=== PATIENT | male | born 1945 | race Caucasian/White ===

== ENCOUNTER 2017-04-05 17:17 | Emergency (ER) | payer MEDICARE, OTHER ==
[~2017-04-05] VITALS: Ht 182.9 cm; Wt 101.8 kg
[2017-04-05 17:20] VITALS: BP 157/75; PULSE 86; RESP 18; O2SAT 98
--- NOTE | 2017-04-05 17:44 | ED.REPORT ---
HPI-Extremity Problem Lower Date of Service Apr 05, 2017 ED Provider: Carlos Samuels MD A 71 year old male with a history of hypothyroidism, hypertension, sciatica, hepatitis C, hyperlipidemia and GERD presents to the ED complaining of right hip pain. The pain radiates down his right leg and has worsened to the point that he is no longer able to stand or walk normally. The pt has been experiencing this pain since 16:00 yesterday afternoon while the pt was working in the yard. He denies trauma. He also denies incontinence or urinary retention. The pt was seen in Urgent Care yesterday and diagnosed with sciatica , but suspects that he may have a hairline fracture or other concern. The pt took tramadol this morning and two muscle relaxers at approximately 13:00. He has previously had injections for his sciatica, which relieved his prior sciatica pain. This is worse than any of his previous sciatica pain. Nursing Notes Stated Complaint: RIGHT HIP & LEG PAIN Chief Complaint: Extremity Trauma Nursing Notes Reviewed: Yes Allergies: Coded Allergies: Penicillins (Verified Allergy, Unknown, 04/05/17) Uncoded Allergies: SULFA (Allergy, Unknown, 04/05/17) Scheduled Ascorbate Calcium (Vitamin C) 500 Mg Tablet 500 MG PO DAILY Aspirin (Aspirin) 325 Mg Tablet 325 MG PO DAILY Fluticasone Propionate (Flonase Allergy Relief) 50 Mcg/Actuation Taylor.susp 9.9 ML NS DAILY Levothyroxine (Levothyroxine) 150 Mcg Tablet 150 MCG PO DAILY Multivitamin (Once Daily) 1 Each Tablet 1 EACH PO DAILY Omeprazole (Omeprazole) 20 Mg Capsule.dr 20 MG PO DAILY Pravastatin (Pravastatin) 80 Mg Tablet 80 MG PO HS Prednisone (PredniSONE) 20 Mg Tablet 40 MG PO DAILY Scheduled PRN Sildenafil Citrate (Viagra) 100 Mg Tablet 100 MG PO UD PRN PRN AD Tramadol (Ultram) 50 Mg Tablet 50 MG PO BID PRN PRN Pain General Time Seen by MD: 17:42 Chief Complaint Other (Right hip pain) Hx Obtained From: Patient Arrived By: Walk-in Onset Occurred: 1 day ago Symptom Duration: Since onset Recent Healthcare: No recent hospitalization, Recent doctor visit Similar Sx Previous: No Past Medical History Past Medical History hypothyroidism hepatitis C hyperlipidemia sciatica Reports: GERD, Hypertension Past Surgical History spinal surgery shoulder surgery Smoking History Unknown if Ever Smoker Social History Other Social History: Good social support Ambulatory Status Independent Review of Systems Musculoskeletal: Reports: Extremity pain, Denies: Back pain, Joint pain (right hip), Neck pain Skin: Denies Rash Complete sys rev & neg: except as marked. Respiratory: Denies: Non-productive cough, Shortness of breath Cardiovascular: Denies: Chest pain GI: Denies: Abdominal pain, Nausea, Vomiting Physical Exam Initial Vital Signs Vital Signs (First) Date Time Temp Pulse Resp B/P Pulse Ox O2 Delivery O2 Flow Rate FiO2 04/05/17 17:20 36.6 86 18 157/75 98 Room Air Initial VS: Reviewed Lower Extremity / Pelvis / MS: Neurologic intact, Vascular intact strength 5/5 in lower extremities sensation intact in lower extremities Ankle / Foot: Atraumatic, Full range of motion General/Constitutional: Awake, Alert Respiratory / Chest: Atraumatic, Breath sounds NL, Breath sounds = bilat, No respiratory distress Cardiovascular: Heart rate NL, Regular rhythm, Heart sounds NL, No gallop, No murmurs, No rubs Skin: Atraumatic, Color NL, No rash, Warm, Dry Neurologic: Oriented X3, Speech NL, No motor deficits, No sensory deficits Head / Eyes: Atraumatic, Normocephalic, PERRL, EOMI ENT: Atraumatic, Airway patent, Mucous membranes moist Neck: Atraumatic, Supple, Full range of motion Abdomen: Atraumatic, Soft, Non-tender, No distention Back: Atraumatic, Full range of motion Additional Notes: no cervical, thoracic or lumbar tenderness no step-offs Upper Extremity / MS: Atraumatic, Full range of motion Psychiatric: Affect NL, Mood NL Interpretation & Diagnostics Interpretation & Diagnostics: Right Hip X-Ray: IMPRESSION: Mild osteoarthritic change in the hip joint. Dictated by: Dwight Chamberlain M.D. on 04/05/2017 at 18:52 Approved by: Dwight Chamberlain M.D. on 04/05/2017 at 18:53 Re-Eval/Medical Decision Med Decision/Clinical Course In summary, the patient is a 71-year-old male with past medical history significant for sciatica, who presents with back pain radiating down to his right leg and hip. Our primary and secondary assessment reveals an awake, alert patient in no acute distress. Hemodynamically stable and afebrile. Exam reveals normal neurologic exam of the lower extremities. Given this immunocompetent, afebrile, patient's history and exam, suspect sciatica exacerbation. No concerning signs or symptoms suggestive of cauda equina, cord compression, epidural abscess or other neurologic emergency. History not suggestive of referred intraabdominal pathology or vascular emergency. There is no history of significant trauma, fever, incontinence, unexplained weight loss, cancer history, long-term steroid use or IV drug use. Plain films of the right hip demonstrate osteoarthritic change without any acute fractures and given the patient's young age, I do not feel imaging is warranted at this time. Given the patient's workup, feel they are safe for discharge with conservative management. The patient was given oral oxycodone for symptom control while here in the ER. He has been referred to a specialist by his primary care physician as he has responded well to injections for his sciatica in the past. Have discussed with the patient results of workup, indications for return including: motor weakness in the lower extremities and/or bowel or bladder incontinence. Also emphasized the need for PCP follow up. They understand and agree with the plan. Source of Hx: Old records Re-Evaluation/Progress #1: Time of Eval: 18:23 Patient Status: Condition improved Re-Evaluation/Progress Note: Pt rechecked, who is resting. Further history and physical exam are obtained. Re-Evaluation/Progress #2: Time of Eval: 19:14 Patient Status: Condition improved Re-Evaluation/Progress Note: Pt rechecked, who is comfortable. The diagnosis and plan for discharge are discussed. The pt understands and agrees with the plan. All questions are addressed at this time. Counseled Regarding: Diagnosis, Lab results, Need for follow-up, When/why to return to ED Discharge & Departure Impression: Primary Impression: Sciatica Laterality: right Qualified Code: M54.31 - Sciatica, right side Additional Impression: Right hip pain Disposition: Home Discharge Condition All VS Reviewed: Yes Condition: Stable Patient Instructions: Hip Pain (ED), Sciatica (ED) Additional Instructions: Thank you for seeking care at the emergency room. It is difficult for us to make definitive diagnoses in the ED but we believe that you are experiencing pain related to your sciatica. Our primary goal today in the Emergency Department was to evaluate you for any life-threatening conditions. Your evaluation was reassuring. You will be discharged with a prescription for steroids, please take as directed. You may continue to take the tramadol that was previously prescribed. You should follow-up with your primary doctor in the next week. Please continue to follow up about getting injections in your hip since this has helped in the past. You should return to the Emergency Department immediately if you develop continence, weakness, sensation, fevers, vomiting, cough, shortness of breath, chest pain, lightheadedness or any other concerning signs or symptoms. Thank you for letting us partake in your care today. You have been prescribed a narcotic for pain relief. These drugs are usually combined with acetaminophen (Tylenol#3, Percocet, Darvocet, Anexsia, Vicodin) or aspirin (Empirin#3, Percodan, Synalogs-DC) for increased effect. Narcotics act on the central nervous system to reduce pain; they also impair mental alertness and physical abilities. We advise you not to drink alcohol, drive a car, or operate dangerous equipment when you are taking these drugs. You can lessen stomach irritation from your medicine by taking it with meals or a full glass of water. Common side effects of narcotics are: Nausea and vomiting , heartburn, constipation, dizziness, sleepiness, and mood changes. If you have bothersome side effects or symptoms of an allergic reaction (itching, hives, rash), stop taking your medicine and call your doctor or the emergency room right away. Please keep your narcotic medicine well out of the reach of children. Referrals: Serafin Velez MD (PCP) Scribe Attestation Portions of this note were transcribed by Angela Berg. I, Dr. Samuels personally performed the history, physical exam and medical decision-making; I reviewed and confirmed the accuracy of the information in the transcribed note. copies to: Serafin Velez MD, Beck O MD Apr 05, 2017 17:44 ANGELA BERG Apr 05, 2017 17:50
[2017-04-05] MEDS ORDERED: ASCO-294 PO (17:59)
[2017-04-05] MEDS ORDERED: PRAV80TA2 PO (17:59)
[2017-04-05] MEDS ORDERED: SILD100T PO (17:59)
[2017-04-05] MEDS ORDERED: LEVO150T5 PO (17:59)
[2017-04-05] MEDS ORDERED: OMEP20CA11 PO (17:59)
[2017-04-05] MEDS ORDERED: FLUT9.9S NS (17:59)
[2017-04-05] MEDS ORDERED: MULT-666 PO (17:59)
[2017-04-05] MEDS ORDERED: TRAM-14 PO (17:59)
[2017-04-05] MEDS ORDERED: ASPI325T32 PO (17:59)
[2017-04-05] MEDS ORDERED: PRE20 PO (18:39)
--- NOTE | 2017-04-05 18:54 | DRSVH ---
PROCEDURE: X-RAY RIGHT HIP COMPLETE, MINIMUM TWO VIEWS ([id number]) INDICATIONS: pain TECHNIQUE: 2 views of the hip were acquired. COMPARISON: None. FINDINGS: Bones: No fractures or dislocations. Small osteophytes are seen around the margin of the femoral hea d neck junction.. The visualized pelvic ring appears intact. Soft tissues: Dystrophic calcifications are seen around the greater trochanter. IMPRESSION: Mild osteoarthritic change in the hip joint. Dictated by: Dwight Chamberlain M.D. on 04/05/2017 at 18:52 Approved by: Dwight Chamberlain M.D. on 04/05/2017 at 18:53
[2017-04-05 19:23] VITALS: BP 134/71; PULSE 79; RESP 18; O2SAT 99
== END 2017-04-05 19:24 | disposition home or self-care (01) ==
LOC: SED 17:17
DX: M54.31 Sciatica, right side (principal); M25.551 Pain in right hip; I10 Essential (primary) hypertension; K21.9 Gastro-esophageal reflux disease without esophagitis; E03.9 Hypothyroidism, unspecified; Z79.82 Long term (current) use of aspirin; Z88.0 Allergy status to penicillin; Z88.2 Allergy status to sulfonamides